=== PATIENT | female | born 1950 | race Caucasian/White ===

== ENCOUNTER → 2020-02-22 08:28 | Outpatient (BNVA) | payer MEDICARE, SELFPAY | PROVIDERS: PCP Internal Medicine; Referring Provider Internal Medicine; Visit Provider Internal Medicine | DX: E21.3 Hyperparathyroidism, unspecified (principal); M81.0 Age-related osteoporosis without current pathological fracture; E03.9 Hypothyroidism, unspecified; E55.9 Vitamin D deficiency, unspecified; Z79.899 Other long term (current) drug therapy | CPT/HCPCS: Q3014 ==

== ENCOUNTER → 2021-02-21 09:24 | Outpatient (BNVA) | payer MEDICARE, SELFPAY | PROVIDERS: PCP Internal Medicine; Referring Provider Internal Medicine; Visit Provider Internal Medicine | CPT/HCPCS: Q3014 ==

== ENCOUNTER → 2021-04-11 13:32 | Outpatient (BNVA) | payer SELFPAY | PROVIDERS: PCP Internal Medicine; Visit Provider Internal Medicine | DX: Z02.79 Encounter for issue of other medical certificate (principal) | CPT/HCPCS: 36415; 80053; 82306; 83970; 84100; 84439; 84443 ==

== ENCOUNTER 2021-04-11 14:51 | Outpatient (REF) | payer MEDICARE, SELFPAY ==
[2021-04-11 15:30] LABS: Alanine Aminotransferase 22 U/L (0-31); Albumin Level 4.2 g/dL (3.5-5.0); Alkaline Phosphatase 100 U/L (39-117); Anion Gap 12 (12-20); Aspartate Amino Transferase 24 U/L (5-31); Bilirubin Total 0.3 mg/dL (0.0-1.0); Blood Urea Nitrogen 16 mg/dL (9-16); Calcium 9.5 mg/dL (8.4-10.2); Carbon Dioxide 30 mmol/L (22-29); Chloride 104 mmol/L (96-108); Estimated Glomerular Filt Rate > 60; Glucose Random 96 mg/dL (60-115); Phosphorus 3.1 mg/dL (2.7-4.5); Potassium 3.2 mmol/L (3.3-5.1); Sodium 143 mmol/L (135-145); Total Protein 7.7 g/dL (6.5-8.0)
[2021-04-11 15:56] LABS: Free T4 (Free Thyroxine) 1.14 ng/dL (0.71-1.85); Thyroid Stimulating Hormone 2.19 uIU/mL (0.32-4.0); Vitamin D 25-OH Total 35.7 ng/mL (>30)
[2021-04-12 12:21] LABS: Calcium (PTHI) 9.4 mg/dL (8.6-10.4); PTHI 47 pg/mL (14-64)
== END 2021-04-11 14:52 | disposition home or self-care (01) ==
LOC: HO.LAB 14:51
PROVIDERS: Visit Provider Internal Medicine
DX: E21.3 Hyperparathyroidism, unspecified (principal); E03.9 Hypothyroidism, unspecified; E55.9 Vitamin D deficiency, unspecified
CPT/HCPCS: 36415; 80053; 82306; 83970; 84100; 84439; 84443

== ENCOUNTER → 2021-05-30 11:41 | Outpatient (BNVA) | payer MEDICARE, SELFPAY | PROVIDERS: PCP Internal Medicine; Visit Provider Internal Medicine | DX: M81.0 Age-related osteoporosis without current pathological fracture (principal); E21.3 Hyperparathyroidism, unspecified; E03.9 Hypothyroidism, unspecified; E55.9 Vitamin D deficiency, unspecified | CPT/HCPCS: 99212 ==

== ENCOUNTER 2021-06-26 10:18 | Outpatient (REF) | payer MEDICARE, SELFPAY ==
--- NOTE | ~2021-06-26 | MM_ITS ---
EXAMINATION: BONE DENSITOMETRY CLINICAL INDICATION: Age related osteoporosis without current pathological fracture. COMPARISON: Previous BD dated 12/05/2019 and baseline BD dated 09/14/2018. TECHNIQUE: Using a [employer] DXA System (software version: 13.1) manufactured by [employer], dual-energy x-ray absorptiometry was performed of the lumbar spine, left hip and left forearm radius 33%. The images are of good technical quality. Summary results are attached. FINDINGS: AP SPINE L1-L4: Current: BMD 1.175 g/cm2, Z-score 0.5, T-score 0.0, normal, 1.7% increase from previous, 0.5% increase from baseline (<5% change is not significant). Prior: BMD 1.155 g/cm2. Baseline: BMD 1.169 g/cm2. LEFT FEMUR, NECK: Current: BMD 0.791 g/cm2, Z-score -0.8, T-score -1.8, osteopenia. Prior: BMD 0.673 g/cm2. Baseline: BMD 0.801 g/cm2. LEFT FEMUR, TOTAL: Current: BMD 0.938 g/cm2, Z-score 0.1, T-score -0.6, normal, 20.7% increase from previous, 1.3% decrease from baseline (<5% change is not significant). Prior: BMD 0.777 g/cm2. Baseline: BMD 0.950 g/cm2. LEFT FOREARM RADIUS 33%: Current: BMD 0.917 g/cm2, Z-score 2.4, T-score 0.5, normal, 2.1% increase from previous, 0.5% increase from baseline (<5% change is not significant). Prior: BMD 0.898 g/cm2. Baseline: BMD 0.912 g/cm2. IDENTIFIED RISK FACTORS: Hyperparathyroidism. Thiazide. Menopause. Osteoporosis. HISTORY OF FRACTURE: None listed. MEDICATIONS: Vitamin D. MM/XR DEXA appendicular skeleton IMPRESSION: 1. DIAGNOSIS: Osteopenia based on the lowest T-score value of -1.8 in the femoral neck applying World Health Organization criteria. 2. 10-YEAR FRACTURE RISK PREDICTION, FRAX: Major osteoporotic fracture (clinical spine, forearm, hip or shoulder) 9.6%. Hip fracture 1.6%. 3. Treatment Recommendations: NOF guidelines recommend consideration for treatment in postmenopausal women and men age 50 and older presenting with the following: -A hip or vertebral (clinical or morphometric) fracture. -T-score less than or equal to -2.5 at the femoral neck or spine after appropriate evaluation to exclude secondary causes. -Low bone mass at the hip or spine and a 10-year fracture probability by FRAX of greater than or equal to 3% for hip fracture or greater than or equal to 20% for major osteoporotic fracture based on the [place] adapted WHO algorithm. 4. Other Recommendations: All treatment decisions require clinical judgment and consideration of individual patient factors, including patient preferences, comorbidities, previous drug use, risk factors not captured in the FRAX model (e.g. frailty, falls, vitamin D deficiency, increased bone turnover, interval significant decline in bone density) and possible under or overestimation of fracture risk by FRAX. Additional medical evaluation for secondary cause of low bone mineral density may be appropriate. FUTURE SCAN RECOMMENDATION: People with diagnosed cases of osteoporosis or at high risk for fracture should have regular bone mineral density tests. For patients eligible for Medicare, routine testing is allowed once every 2 years. The testing frequency can be increased to one year for patients who have rapidly progressing disease, those who are receiving or discontinuing medical therapy to restore bone mass, or have additional risk factors.
== END 2021-06-26 10:19 | disposition home or self-care (01) ==
LOC: HO.MAMMO 10:18
PROVIDERS: Visit Provider Internal Medicine
DX: Z13.820 Encounter for screening for osteoporosis (principal); M81.0 Age-related osteoporosis without current pathological fracture; Z78.0 Asymptomatic menopausal state; Z79.899 Other long term (current) drug therapy
CPT/HCPCS: 77081

== ENCOUNTER → 2021-10-28 13:01 | Outpatient (BNVA) | payer SELFPAY | PROVIDERS: PCP Internal Medicine; Visit Provider Internal Medicine | DX: Z02.79 Encounter for issue of other medical certificate (principal) ==

== ENCOUNTER 2022-03-14 11:59 | Outpatient (REF) | payer MEDICARE, SELFPAY ==
[2022-03-14 16:07] LABS: Alanine Aminotransferase 19 U/L (0-31); Alkaline Phosphatase 94 U/L (39-117); Anion Gap 13 (12-20); Aspartate Amino Transferase 22 U/L (5-31); Bilirubin Total 0.3 mg/dL (0.0-1.0); Calcium 8.9 mg/dL (8.4-10.2); Carbon Dioxide 29 mmol/L (22-29); Chloride 103 mmol/L (96-108); Estimated Glomerular Filt Rate > 60; Free T4 (Free Thyroxine) 1.06 ng/dL (0.71-1.85); Glucose Random 94 mg/dL (60-115); Phosphorus 3.2 mg/dL (2.7-4.5); Potassium 3.8 mmol/L (3.3-5.1); Sodium 141 mmol/L (135-145); Thyroid Stimulating Hormone 1.69 uIU/mL (0.32-4.0); Total Protein 6.9 g/dL (6.5-8.0); Vitamin D 25-OH Total 35.6 ng/mL (>30)
[2022-03-14 16:48] LABS: Blood Urea Nitrogen 16 mg/dL (9-16)
[2022-03-18 14:38] LABS: N-Telopeptide 66 (see note); NTXCreaRU 141 mg/dL (20-275)
[2022-03-18 15:13] LABS: Calcium (PTHI) 9.2 mg/dL (8.6-10.4); PTHI 76 pg/mL (16-77)
== END 2022-03-14 12:00 | disposition home or self-care (01) ==
LOC: HO.WFDLDS 11:59
PROVIDERS: Visit Provider Internal Medicine
DX: E55.9 Vitamin D deficiency, unspecified (principal); E03.9 Hypothyroidism, unspecified; E21.3 Hyperparathyroidism, unspecified; M81.0 Age-related osteoporosis without current pathological fracture
CPT/HCPCS: 36415; 80053; 82306; 82523; 83970; 84100; 84439; 84443

== ENCOUNTER → 2022-05-16 10:01 | Outpatient (BNVA) | payer SELFPAY | PROVIDERS: PCP Internal Medicine; Visit Provider Physician Assistant | DX: Z02.79 Encounter for issue of other medical certificate (principal) ==

== ENCOUNTER → 2022-11-05 10:29 | Outpatient (BNVA) | payer SELFPAY | PROVIDERS: PCP Internal Medicine; Visit Provider Physician Assistant Medical | DX: Z02.79 Encounter for issue of other medical certificate (principal) ==

== ENCOUNTER → 2023-05-01 10:44 | Outpatient (BNVA) | payer SELFPAY | PROVIDERS: PCP Internal Medicine; Visit Provider Internal Medicine | DX: Z02.79 Encounter for issue of other medical certificate (principal) ==

== ENCOUNTER → 2023-11-04 08:02 | Outpatient (BNVA) | payer SELFPAY | PROVIDERS: PCP Internal Medicine; Visit Provider Internal Medicine | DX: Z02.79 Encounter for issue of other medical certificate (principal) ==

== ENCOUNTER → 2024-04-25 10:24 | Outpatient (BNVA) | payer SELFPAY | PROVIDERS: PCP Internal Medicine; Visit Provider Internal Medicine | DX: Z02.79 Encounter for issue of other medical certificate (principal) ==

== ENCOUNTER → 2024-10-14 10:33 | Outpatient (BNVA) | payer SELFPAY | PROVIDERS: PCP Internal Medicine; Visit Provider Internal Medicine | DX: Z02.79 Encounter for issue of other medical certificate (principal) ==